=== PATIENT | male | born 1975 | race Caucasian/White ===

== ENCOUNTER → 2020-01-16 | Outpatient (CLI) | payer BC ==
[~2020-01-16] MED LIST: MOTRIN800 MG PO
== END | disposition home or self-care (01) ==
LOC: US 11:00
PROVIDERS: ATTEND Nurse Practitioner Family
DX: M79.662 Pain in left lower leg (principal)

== ENCOUNTER → 2023-07-19 | Outpatient (CLI) | payer BC | END | disposition home or self-care (01) | LOC: CT 13:00 | PROVIDERS: ATTEND Nurse Practitioner | DX: R10.9 Unspecified abdominal pain (principal); Z87.442 Personal history of urinary calculi; N26.9 Renal sclerosis, unspecified ==

== ENCOUNTER → 2023-09-05 | Outpatient (CLI) | payer BC | END | disposition home or self-care (01) | LOC: US 07:54 | PROVIDERS: ATTEND Internal Medicine | DX: K82.8 Other specified diseases of gallbladder (principal) ==